=== PATIENT | male | born 2000 | race African-American/Black ===

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

== ENCOUNTER → 2024-09-06 | Outpatient (CLI) | payer OTHER ==
[~2024-09-06] MED LIST: BENA25CA4 PO; PRED20TA PO
== END ==
LOC: M RAD 14:59
PROVIDERS: ATTEND Family Medicine
DX: N50.82 Scrotal pain (principal)